=== PATIENT | male | born 1950 | race Caucasian/White ===

== ENCOUNTER 2018-03-03 09:42 | Inpatient (IN) | payer OTHER ==
[~2018-03-03] VITALS: Ht 167.6 cm; Wt 72.7 kg
[2018-03-03 10:23] LABS: BASOPHIL % 1.4 % (0-2); PLATELET COUNT 331 x10^3mcL (130-400)
[2018-03-03] MEDS ORDERED: HCTZ/LISINOPRIL1 TAB (10:33)
[2018-03-03] MEDS ORDERED: ANORO ELLIPTA1 POW (10:33)
[2018-03-03] MEDS ORDERED: ASPIR 8181 MG PO (10:33)
[2018-03-03] MEDS ORDERED: PROAIR HFA8.5 GM (10:33)
[2018-03-03] MEDS ORDERED: PREDNISONE1 MG PO (10:34)
[2018-03-03 10:43] LABS: CALCIUM 9.5 mg/dL (8.5-10.1); CHLORIDE SERUM 94 mmol/L (98-107); CREATININE SERUM 0.8 mg/dL (0.7-1.3); GFR1 > 60 mL/min; GLUCOSE SERUM 142 mg/dL (74-106); POTASSIUM SERUM 4.2 mmol/L (3.5-5.1); SODIUM SERUM 127 mmol/L (136-145)
[2018-03-03 10:51] LABS: ALBUMIN 4.5 g/dL (3.4-5.0); ALKALINE PHOSPHATASE 51 U/L (46-116); ALT/SGPT 26 U/L (16-63); AST/SGOT 19 U/L (15-37); BILIRUBIN TOTAL 0.83 mg/dL (0.20-1.00); TOTAL PROTEIN, SERUM 7.4 g/dL (6.4-8.2)
[2018-03-03 13:14] VITALS: BP 180/103
[2018-03-03 17:24] VITALS: BP 129/80
[2018-03-03 21:16] VITALS: BP 147/85
[2018-03-04 05:53] VITALS: BP 129/70
[2018-03-04 06:14] LABS: PLATELET COUNT 277 x10^3mcL (130-400); RED CELL DISTRIBUTION WIDTH 13.1 % (11.5-14.5)
[2018-03-04 06:54] LABS: BASOPHIL % 0 % (0-2)
[2018-03-04 07:08] LABS: CALCIUM 8.8 mg/dL (8.5-10.1); CARBON DIOXIDE 25.3 mmol/L (21-32); CHLORIDE SERUM 99 mmol/L (98-107); CREATININE SERUM 0.7 mg/dL (0.7-1.3); GFR1 > 60 mL/min; GLUCOSE SERUM 130 mg/dL (74-106); MAGNESIUM 2.2 mg/dL (1.8-2.4); PHOSPHOROUS 4.3 mg/dL (2.5-4.9); POTASSIUM SERUM 4.4 mmol/L (3.5-5.1); SODIUM SERUM 132 mmol/L (136-145)
[2018-03-04 08:52] VITALS: BP 161/91
[2018-03-04 17:14] VITALS: BP 152/81
[2018-03-04 20:41] VITALS: BP 149/84
[2018-03-05 05:37] VITALS: BP 144/76
[2018-03-05 08:08] VITALS: BP 152/89
[2018-03-05 12:26] VITALS: BP 152/89
== END 2018-03-05 13:50 | disposition home or self-care (01) | DRG 190 ==
LOC: ED 09:42 → MU 10:51
PROVIDERS: Emergency Medicine; Internal Medicine Pulmonary Disease
DX: J44.1 Chronic obstructive pulmonary disease with (acute) exacerbation (principal); J18.9 Pneumonia, unspecified organism; E87.1 Hypo-osmolality and hyponatremia; I10 Essential (primary) hypertension; F41.9 Anxiety disorder, unspecified; R91.1 Solitary pulmonary nodule; Z72.0 Tobacco use
CPT/HCPCS: 83880; 99406; J0456; J0696; J1644; J1956; J2920; J2930; J3475; J3490; J7050; J7613; J7620; J7626; J7644; Q0092

== ENCOUNTER 2018-05-19 11:25 | Inpatient (IN) | payer OTHER ==
[~2018-05-19] VITALS: Ht 167.6 cm; Wt 72.6 kg
[~2018-05-19 11:25] MED LIST: ANORO ELLIPTA1 POW; ASPIR 8181 MG PO; HCTZ/LISINOPRIL1 TAB; PREDNISONE1 MG PO; PROAIR HFA8.5 GM
[2018-05-19 11:29] VITALS: Ht 167.6 cm; Wt 72.6 kg
[2018-05-19 12:02] LABS: BASOPHIL % 0.2 % (0-2); PLATELET COUNT 365 x10^3mcL (130-400); RED CELL DISTRIBUTION WIDTH 12.5 % (11.5-14.5)
[2018-05-19 12:15] LABS: ALBUMIN 3.4 g/dL (3.4-5.0); ALKALINE PHOSPHATASE 82 U/L (46-116); ALT/SGPT 25 U/L (16-63); AST/SGOT 42 U/L (15-37); CALCIUM 8.7 mg/dL (8.5-10.1); CARBON DIOXIDE 27.6 mmol/L (21-32); CHLORIDE SERUM 86 mmol/L (98-107); CREATININE SERUM 0.6 mg/dL (0.7-1.3); GFR1 > 60 mL/min; GLUCOSE SERUM 132 mg/dL (74-106); POTASSIUM SERUM 5.1 mmol/L (3.5-5.1); TOTAL PROTEIN, SERUM 7.8 g/dL (6.4-8.2)
[2018-05-19 12:19] LABS: SODIUM SERUM 120 mmol/L (136-145)
[2018-05-19] MEDS ORDERED: PROAIR HFA8.5 GM (13:19)
[2018-05-19] MEDS ORDERED: ANORO ELLIPTA1 POW (13:19)
[2018-05-19 13:28] VITALS: BP 167/115
[2018-05-19 13:49] VITALS: BP 177/92
[2018-05-19 14:49] VITALS: BP 155/89
[2018-05-19 16:32] VITALS: BP 156/89
[2018-05-19 20:14] VITALS: BP 125/76
[2018-05-20 05:46] VITALS: BP 135/68
[2018-05-20 06:29] LABS: RED CELL DISTRIBUTION WIDTH 12.6 % (11.5-14.5)
[2018-05-20 06:40] LABS: CALCIUM 8.8 mg/dL (8.5-10.1); CHLORIDE SERUM 99 mmol/L (98-107); CREATININE SERUM 0.7 mg/dL (0.7-1.3); GFR1 > 60 mL/min; GLUCOSE SERUM 186 mg/dL (74-106); POTASSIUM SERUM 4.5 mmol/L (3.5-5.1); SODIUM SERUM 135 mmol/L (136-145)
[2018-05-20 06:41] LABS: BASOPHIL % 0 % (0-2); PLATELET COUNT 415 x10^3mcL (130-400)
[2018-05-20 08:10] VITALS: BP 156/92
[2018-05-20 11:57] VITALS: BP 139/70
[2018-05-20 16:58] VITALS: BP 150/81
[2018-05-20 21:00] VITALS: BP 145/80
[2018-05-21 04:40] VITALS: BP 142/72
[2018-05-21 06:46] LABS: CALCIUM 9.3 mg/dL (8.5-10.1); CARBON DIOXIDE 23.7 mmol/L (21-32); CHLORIDE SERUM 97 mmol/L (98-107); CREATININE SERUM 0.8 mg/dL (0.7-1.3); GFR1 > 60 mL/min; GLUCOSE SERUM 156 mg/dL (74-106); POTASSIUM SERUM 4.6 mmol/L (3.5-5.1); SODIUM SERUM 132 mmol/L (136-145)
[2018-05-21 08:29] VITALS: BP 150/76
[2018-05-21 12:24] VITALS: BP 135/66
[2018-05-21 17:01] VITALS: BP 140/76
[2018-05-21 21:13] VITALS: BP 153/93
[2018-05-22 05:35] VITALS: BP 140/79
[2018-05-22 07:13] LABS: RED CELL DISTRIBUTION WIDTH 12.6 % (11.5-14.5)
[2018-05-22 07:21] LABS: BASOPHIL % 0 % (0-2); PLATELET COUNT 508 x10^3mcL (130-400)
[2018-05-22 07:27] LABS: CALCIUM 9.2 mg/dL (8.5-10.1); CARBON DIOXIDE 28.7 mmol/L (21-32); CHLORIDE SERUM 100 mmol/L (98-107); CREATININE SERUM 0.8 mg/dL (0.7-1.3); GFR1 > 60 mL/min; GLUCOSE SERUM 135 mg/dL (74-106); POTASSIUM SERUM 5.3 mmol/L (3.5-5.1); SODIUM SERUM 135 mmol/L (136-145)
[2018-05-22 08:47] VITALS: BP 152/87
[2018-05-22 13:42] VITALS: BP 140/87
[2018-05-22 17:24] VITALS: BP 155/85
[2018-05-22 21:28] VITALS: BP 153/93
[2018-05-23] VITALS (7 sets, daily range): BP systolic 149–171; BP diastolic 83–96
[2018-05-23 06:51] LABS: BASOPHIL % 0.2 % (0-2)
[2018-05-23 06:53] LABS: PLATELET COUNT 569 x10^3mcL (130-400)
[2018-05-23 06:59] LABS: CALCIUM 9.1 mg/dL (8.5-10.1); CARBON DIOXIDE 28.2 mmol/L (21-32); CHLORIDE SERUM 95 mmol/L (98-107); CREATININE SERUM 0.7 mg/dL (0.7-1.3); GFR1 > 60 mL/min; GLUCOSE SERUM 117 mg/dL (74-106); POTASSIUM SERUM 4.9 mmol/L (3.5-5.1); SODIUM SERUM 133 mmol/L (136-145)
[2018-05-24] VITALS (9 sets, daily range): BP systolic 140–189; BP diastolic 76–109
[2018-05-24 06:16] LABS: CALCIUM 9.3 mg/dL (8.5-10.1); CARBON DIOXIDE 27.7 mmol/L (21-32); CHLORIDE SERUM 96 mmol/L (98-107); CREATININE SERUM 0.9 mg/dL (0.7-1.3); GFR1 > 60 mL/min; GLUCOSE SERUM 123 mg/dL (74-106); MAGNESIUM 2.3 mg/dL (1.8-2.4); POTASSIUM SERUM 5.2 mmol/L (3.5-5.1); SODIUM SERUM 132 mmol/L (136-145)
[2018-05-24 06:57] LABS: RED CELL DISTRIBUTION WIDTH 12.9 % (11.5-14.5)
[2018-05-24 08:13] LABS: ATYPICAL LYMPH 1 %; BAND NEUTROPHIL 1 % (0-10); BASOPHIL 0 % (0-2); MONOCYTE 5 % (0-7); SEGMENTED NEUTROPHILS 93 % (37-75)
[2018-05-24 08:15] LABS: PLATELET MORPHOLOGY PLATELETS INCREASED; acanthocyte (spur cell) 1+; rbc morphology (normal/abnorm) ABNORMAL (NORMAL)
[2018-05-24 14:28] LABS: PLATELET COUNT 586 x10^3mcL (130-400)
[2018-05-25 05:43] VITALS: BP 145/81
[2018-05-25 06:17] LABS: ALBUMIN 3.1 g/dL (3.4-5.0); ALKALINE PHOSPHATASE 53 U/L (46-116); ALT/SGPT 34 U/L (16-63); AST/SGOT 19 U/L (15-37); BILIRUBIN TOTAL 0.44 mg/dL (0.20-1.00); CALCIUM 8.8 mg/dL (8.5-10.1); CARBON DIOXIDE 29.8 mmol/L (21-32); CHLORIDE SERUM 96 mmol/L (98-107); CREATININE SERUM 0.9 mg/dL (0.7-1.3); GFR1 > 60 mL/min; GLUCOSE SERUM 137 mg/dL (74-106); MAGNESIUM 2.4 mg/dL (1.8-2.4); PHOSPHOROUS 4.4 mg/dL (2.5-4.9); POTASSIUM SERUM 4.9 mmol/L (3.5-5.1); SODIUM SERUM 132 mmol/L (136-145); TOTAL PROTEIN, SERUM 6.3 g/dL (6.4-8.2)
[2018-05-25 06:49] LABS: BASOPHIL % 0.3 % (0-2); RED CELL DISTRIBUTION WIDTH 12.9 % (11.5-14.5)
[2018-05-25 07:03] LABS: PLATELET COUNT 589 x10^3mcL (130-400)
[2018-05-25 09:20] VITALS: BP 151/72
[2018-05-25 13:01] VITALS: BP 147/80
[2018-05-25 15:56] VITALS: BP 153/98
[2018-05-25 21:23] VITALS: BP 168/97
[2018-05-26 06:17] VITALS: BP 174/94
[2018-05-26 09:03] VITALS: BP 158/87
[2018-05-26 12:19] VITALS: BP 150/87; BP 158/87
[2018-05-26 13:24] VITALS: BP 150/87
== END 2018-05-26 18:26 | disposition hospice, home (50) | DRG 189 ==
LOC: ED 11:25 → DU 12:33
PROVIDERS: Emergency Medicine; Internal Medicine Nephrology; Internal Medicine Pulmonary Disease
DX: J96.00 Acute respiratory failure, unspecified whether with hypoxia or hypercapnia (principal); J44.1 Chronic obstructive pulmonary disease with (acute) exacerbation; E87.1 Hypo-osmolality and hyponatremia; J44.0 Chronic obstructive pulmonary disease with (acute) lower respiratory infection; J20.9 Acute bronchitis, unspecified; I10 Essential (primary) hypertension; Z87.891 Personal history of nicotine dependence; Z68.25 Body mass index [BMI] 25.0-25.9, adult
CPT/HCPCS: 36600; 82962; 90658; J0360; J1650; J1956; J2920; J2930; J3490; J7030; J7613; J7620; J7626; J7644; Q0092